=== PATIENT | female | born 1995 | race Caucasian/White ===

== ENCOUNTER 2017-05-07 21:22 | Emergency (ER) | payer OTHER ==
[2017-05-07] MEDS ORDERED: NS 0.9% 1000 ML* 1,000 ML IV ONE (22:01)
[2017-05-07 22:23] LABS: Hematocrit 39 % (35-47); Hemoglobin 12.9 g/dl (12.0-16.0); Mean Corpuscular HGB Conc 34 g/dl (31-36); Mean Corpuscular Hemoglobin 32 pg (27-31); Mean Corpuscular Volume 96 fL (80-97); Mean Platelet Volume 9 um3 (7.4-10.4); Red Blood Count 4.03 10^6/ul (4.0-5.4); Red Cell Distribution Width 12 % (10.5-15); White Blood Count 11.5 10^3/ul (3.5-10.8)
[2017-05-07 22:36] LABS: ALT 13 U/L (7-52); AST 19 U/L (13-39); Albumin 4.4 g/dL (3.2-5.2); Alkaline Phosphatase 68 U/L (34-104); Anion Gap 12 mmol/L (2-11); BUN/Creatinine Ratio 14.8 (8-20); Blood Urea Nitrogen 16 mg/dL (6-24); CO2 Carbon Dioxide 23 mmol/L (22-32); Calcium 9.3 mg/dL (8.6-10.3); Chloride 99 mmol/L (101-111); EGFR African American 84.1 (>60); EGFR Non-African American 65.4 (>60); Glucose 227 mg/dL (70-100); Potassium 3.2 mmol/L (3.5-5.0); Sodium 134 mmol/L (133-145); Total Protein 7.4 g/dL (6.4-8.9)
[2017-05-07 22:56] LABS: Acetaminophen < 15 mcg/mL; Alcohol < 10 mg/dL (<10); Salicylate < 2.50 mg/dL (<30)
--- NOTE | 2017-05-07 23:00 | ED ---
Elvi Ennis Thomas, scribed for Tyler Wyatt MD on 05/07/17 at 2206 . Altered Mental Status - HPI Summary HPI Summary: The pt is a 21 y/o F BIB after she was unconscious s/p smoking an unknown substance at 20:30. She does not know exactly what substance she smoked, but she thinks it is either marijuana or tobacco. She is accompanied by a friend who smoked the same substance with apparently no similar reaction. She reports that she has not smoked marijuana in quite some time. Per EMS, she was unconscious at initial encounter with agonal breathing. She was satting 78 previously, but that has resolved by time of examination. She denies pain or other complaints at this time. PMHx: previously healthy. PSHx: none. SHx: occasional smoking tobacco, weekly alcohol use, marijuana use. She is a sophomore at [employer]. - History Of Current Complaint Chief Complaint: EDSubstanceAbuse Stated Complaint: SUBSTANCE ABUSE Time Seen by Provider: 05/07/17 21:55 Hx Obtained From: Patient, Family/Clinical Program Coordinator - accompanied by friend, EMS Timing: Constant Aggravating Factor(s): Nothing Alleviating Factor(s): Nothing Related History: Other: - Smoked an unknown substanc that she thinks is either tobacco or marijuana - Allergies/Home Medications Allergies/Adverse Reactions: Allergies Allergy/AdvReac Type Severity Reaction Status Date / Time No Known Allergies Allergy Verified 05/07/17 22:13 PMH/Surg Hx/FS Hx/Imm Hx Previously Healthy: No Cardiovascular History: Denies: Hx Congestive Heart Failure Respiratory History: Denies: Hx Chronic Obstructive Pulmonary Disease (COPD) - Surgical History Surgery Procedure, Year, and Place: None Infectious Disease History: No Infectious Disease History: Denies: Traveled Outside the [place] in Last 30 Days - Family History Known Family History: Positive: Other - when asked for her FHx, the patient responds "none" - Social History Alcohol Use: Weekly Alcohol Amount: 3xweek, "a lot" Substance Use Type: Reports: Marijuana Substance Use Comment - Amount & Last Used: unknown Hx Tobacco Use: Yes Smoking Status (MU): Current Some Day Smoker Review of Systems Negative: Fever Positive: Other - POS: agonal breathing, satting 78 Negative: Other - NEG: any pain Neurological: Other - POS: unconscious All Other Systems Reviewed And Are Negative: Yes Physical Exam Triage Information Reviewed: Yes Vital Signs On Initial Exam: Initial Vitals Temp Pulse Resp BP Pulse Ox 98 F 80 24 105/58 100 05/07/17 21:44 05/07/17 21:44 05/07/17 21:44 05/07/17 21:44 05/07/17 21:44 Vital Signs Reviewed: Yes Appearance: Positive: Well-Appearing, No Pain Distress Skin: Positive: Warm Head/Face: Positive: Normal Head/Face Inspection Eyes: Positive: NICOLE ENT: Positive: Hearing grossly normal Neck: Positive: Supple Respiratory/Lung Sounds: Positive: Breath Sounds Present Cardiovascular: Positive: RRR Abdomen Description: Positive: Nontender, Soft Bowel Sounds: Positive: Present Musculoskeletal: Positive: Strength/ROM Intact Neurological: Positive: Alert, Oriented to Person Place, Time Psychiatric: Positive: Affect/Mood Appropriate - Lebron Coma Scale Coma Scale Total: 15 Diagnostics - Vital Signs Vital Signs Temp Pulse Resp BP Pulse Ox 05/07/17 21:44 98 F 80 24 105/58 100 - Laboratory Result Diagrams: 05/07/17 22:11 05/07/17 22:11 Lab Statement: Any lab studies that have been ordered have been reviewed, and results considered in the medical decision making process. Altered Mental Statu Course/Dx - Course Assessment/Plan: The pt is a 21 y/o F BIB after she was unconscious s/p smoking an unknown substance at 20:30. She does not know exactly what substance she smoked, but she thinks it is either marijuana or tobacco. She is accompanied by a friend who smoked the same substance with apparently no similar reaction. She reports that she has not smoked marijuana in quite some time. Per EMS, she was unconscious at initial encounter with agonal breathing. She was satting 78 previously, but that has resolved by time of examination. She denies pain or other complaints at this time. PMHx: previously healthy. PSHx: none. SHx: occasional smoking tobacco, weekly alcohol use, marijuana use. She is a sophomore at [employer]. In the ED course the patient was given IV fluids. Blood work shows WBC 11.5, Potassium 3.2, Chloride 99, Anion gap 12, Creatinine 1.08, Glucose 227, Lactic acid 3.4. UA shows 1+ protein, 1+ ketones, and 1+ glucose. Urine Tox reveals presumptive positive cannabinoids. Patient is diagnosed with substance abuse. Patient will be discharged home with follow up by PCP. Patient is agreeable to this plan. - Diagnoses Discharge Diagnoses: Substance abuse Discharge - Discharge Plan Condition: Stable Disposition: HOME Patient Education Materials: Cannabis Abuse (ED) Referrals: [facility] [place] [facility] REFERRAL [Outside] - 3 Days The documentation as recorded by the Elvi montes Thomas accurately reflects the service I personally performed and the decisions made by me, Tyler Wyatt MD.
[2017-05-07 23:26] LABS: Urine Bacteria Absent (Absent); Urine Bilirubin Negative (Negative); Urine Glucose 1+(50 mg/dL) (Negative); Urine Nitrite Negative (Negative)
[2017-05-08 00:44] VITALS: BP 117/69
[2017-05-08 00:53] LABS: Benzodiazepine Urine Screen None Detected (None Detect)
== END 2017-05-08 01:01 | disposition home or self-care (01) ==
LOC: ED 21:22
DX: F19.10 Other psychoactive substance abuse, uncomplicated (principal); Z72.0 Tobacco use
CPT/HCPCS: 36415; 80053; 80307; 80320; 80329; 81003; 81015; 83605; 84702; 85025; 96360; 99283; G0480